=== PATIENT | female | born 1960 | race Hispanic/Latino ===

== ENCOUNTER 2018-09-28 15:19 | Observation (INO) | payer MEDICARE ==
[~2018-09-28] VITALS: Ht 163.8 cm; Wt 102.5 kg
[2018-09-28 16:23] LABS: BASOPHILS % (AUTO) 0.4 % (0.0-5.0); EOSINOPHILS % (AUTO) 2.6 % (0.0-8.0); HEMATOCRIT 35.1 % (36-48); LYMPHOCYTES % (AUTO) 13.2 % (21.0-51.0); MEAN CORPUSCULAR HEMOGLOBIN 33.1 pg (27.0-33.0); MEAN CORPUSCULAR HGB CONC 34.8 g/dL (32.0-36.0); MONOCYTES % (AUTO) 6.6 % (3.0-13.0); NEUTROPHILS % (AUTO) 77.2 % (40.0-77.0); NUCLEATED RED BLOOD CELLS 0.1 % (0.0-0.19); PLATELET COUNT (AUTO) 142 K/uL (130-400); RED BLOOD CELL COUNT(AUTO) 3.69 MIL/uL (4.00-5.50); WHITE BLOOD COUNT (AUTO) 5.9 K/uL (4.8-10.8)
[2018-09-28 16:34] LABS: POTASSIUM 3.3 mmol/L (3.5-5.1)
[2018-09-28 16:37] LABS: INR 0.97 (0.85-1.15); PARTIAL THROMBOPLASTIN TIME 30.6 SEC (26.3-35.5); PROTHROMBIN TIME 10.2 SEC (9.6-11.6)
[2018-09-28 16:38] LABS: ALBUMIN 3.5 g/dL (3.5-5.0); BILIRUBIN,TOTAL 0.6 mg/dL (0.2-1.0); TOTAL PROTEIN, SERUM 7.9 g/dL (6.0-8.3)
[2018-09-28] MEDS ORDERED: MORPHINE SULFATE 4 MG/1ML SYG IV PRN (20:15)
[2018-09-28] MEDS: NITROGLYCERIN 1GM/1 INCH PACKET TD SCH (20:15)
[2018-09-28] MEDS ORDERED: ACETAMINOPHEN 325 MG TAB PO PRN (20:15)
[2018-09-28] MEDS ORDERED: NITROGLYCERIN 1GM/1 INCH PACKET TD ONE (20:24)
[2018-09-28] MEDS ORDERED: METOPROLOL TARTRATE 25 MG TAB ONE (20:25)
[2018-09-28] MEDS ORDERED: FAMOTIDINE/PF 20 MG/2 ML VIAL IV ONE (20:25)
[2018-09-28] MEDS: METOPROLOL TARTRATE 25 MG TAB PO SCH (21:00)
[2018-09-28 22:19] VITALS: BP 150/73
[2018-09-28] MEDS: ACETAMINOPHEN 325 MG TAB PO PRN ×3 (22:48→23:54)
[2018-09-28 23:56] VITALS: BP 124/77
[2018-09-29 03:52] VITALS: BP 150/73
[2018-09-29] MEDS ORDERED: ONDANSETRON HCL 4 MG/2 ML VIAL ONE (04:36)
[2018-09-29] MEDS: NITROGLYCERIN 1GM/1 INCH PACKET TD SCH (04:39)
[2018-09-29] MEDS ORDERED: ONDANSETRON HCL 4 MG/2 ML VIAL IVP PRN (04:45)
[2018-09-29 07:00] VITALS: BP 134/73
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
[2018-09-29] MEDS ORDERED: FAMOTIDINE/PF 20 MG/2 ML VIAL IV SCH (09:00)
[2018-09-29] MEDS ORDERED: ASPIRIN 325 MG TABLET PO SCH (09:00)
[2018-09-29] MEDS: METOPROLOL TARTRATE 25 MG TAB PO SCH (09:09)
[2018-09-29] MEDS: FAMOTIDINE 20MG TAB 20 MG TAB PO SCH (09:14)
--- NOTE | 2018-09-29 09:22 | NUR ---
CARDIOLOGY CONSULT DR PEREZ IN TO SEE PT. SON @ BEDSIDE. UPDATED ON PT'S STATUS & PLAN OF CARE REVIEWED. ORDERS RECEIVED & ENTERED.
[2018-09-29] MEDS ORDERED: INSU100V IV (09:43)
[2018-09-29] MEDS ORDERED: HYDR-4030 PO (10:30)
[2018-09-29] MEDS ORDERED: ASPI-1181 PO (10:30)
[2018-09-29] MEDS ORDERED: SEVE800 PO (10:30)
[2018-09-29] MEDS ORDERED: BUPR200T34 PO (10:30)
[2018-09-29] MEDS ORDERED: IRON GLYCINATE PO (10:30)
[2018-09-29] MEDS ORDERED: EZET10TA26 PO (10:30)
[2018-09-29] MEDS ORDERED: CINA30 PO (10:30)
[2018-09-29] MEDS ORDERED: OMEGA-3 FISH OIL (10:30)
[2018-09-29] MEDS ORDERED: ISOS30TA6 PO (10:30)
[2018-09-29] MEDS ORDERED: CARV25TA PO (10:30)
[2018-09-29] MEDS ORDERED: B,C/1TAB PO (10:30)
[2018-09-29] MEDS ORDERED: LEVO150T11 PO (10:30)
[2018-09-29] MEDS ORDERED: FLUO40CA49 PO (10:30)
[2018-09-29] MEDS ORDERED: CHOL100018 PO (10:30)
[2018-09-29] MEDS ORDERED: INSU300I SQ ×2 (10:47)
[2018-09-29 11:00] VITALS: BP 157/73
[2018-09-29] MEDS ORDERED: GLUCAGON 1MG KIT 1 MG ML IM PRN (11:45)
[2018-09-29] MEDS ORDERED: DEXTROSE 50%-WATER 50 ML DISP.SYRIN IV PRN (11:45)
--- NOTE | 2018-09-29 12:05 | NUR ---
PPM INTERROGATION [facility] REP HERE TO INTERROGATE DEVICE. INFORMED TO CALL DR CHRIS Hunter/INTERROGATION RESULTS.
--- NOTE | 2018-09-29 12:24 | NUR ---
PPM INTERROGATION [facility] REP SPOKE W/DR PEREZ RE: DEVICE INTERROGATION.
[2018-09-29] MEDS ORDERED: NITROGLYCERIN 1GM/1 INCH PACKET TD SCH (14:00)
[2018-09-29 16:00] VITALS: BP 166/76
[2018-09-29] MEDS: INSULIN HUMULIN R 100 UNIT/ML 3ML SQ SCH ×2 (16:28→21:00)
[2018-09-29] MEDS: INSULIN LISPRO 100 UNIT/ML 3ML SQ SCH (17:00)
[2018-09-29] MEDS: CINACALCET HCL 30 MG TAB PO SCH (17:15)
[2018-09-29] MEDS: SEVELAMER HCL 800 MG TABLET PO SCH (17:15)
[2018-09-29 19:51] VITALS: BP 168/92
[2018-09-29] MEDS ORDERED: INSULIN GLARGINE HUM REC ANLOG 50 UNIT SQ SCH (21:00)
[2018-09-29] MEDS ORDERED: FLUOXETINE HCL 20 MG CAPSULE PO SCH (21:00)
[2018-09-29] MEDS: CARVEDILOL 25 MG TABLET PO SCH (21:02)
[2018-09-29] MEDS: BUPROPION HCL 200 MG PO SCH (21:08)
[2018-09-29] MEDS: HYDROXYZINE PAMOATE 25 MG PO SCH (21:08)
[2018-09-29 23:39] VITALS: BP 137/69
[2018-09-30 03:52] VITALS: BP 130/65
[2018-09-30 04:09] LABS: HEMATOCRIT 32.8 % (36-48); MEAN CORPUSCULAR HEMOGLOBIN 32.8 pg (27.0-33.0); MEAN CORPUSCULAR HGB CONC 34.3 g/dL (32.0-36.0); MEAN CORPUSCULAR VOLUME 95.8 fL (79-99); NUCLEATED RED BLOOD CELLS 0.1 % (0.0-0.19); PLATELET COUNT (AUTO) 177 K/uL (130-400); RED BLOOD CELL COUNT(AUTO) 3.42 MIL/uL (4.00-5.50); WHITE BLOOD COUNT (AUTO) 6.4 K/uL (4.8-10.8)
[2018-09-30 04:23] LABS: BASOPHILS % (MANUAL) 1 % (0-2); EOSINOPHILS % (MANUAL) 1 % (1-6); LYMPHOCYTES % (MANUAL) 15 % (22-44); MAN.DIFF COMMENT-IMPRESSION MANUAL DIFFERENTIAL; POTASSIUM 4.1 mmol/L (3.5-5.1); SEGMENTED NEUTROPHILS % 83 % (40-70)
[2018-09-30] MEDS: INSULIN HUMULIN R 100 UNIT/ML 3ML SQ SCH ×3 (06:04→16:29)
[2018-09-30] MEDS ORDERED: LEVOTHYROXINE 150 MCG TABLET PO SCH (06:30)
[2018-09-30 07:00] VITALS: BP 124/54
[2018-09-30] MEDS: INSULIN LISPRO 100 UNIT/ML 3ML SQ SCH ×3 (08:00→16:31)
--- NOTE | 2018-09-30 08:30 | NUR ---
AM ASSESSMENT PT SITTING IN BED. A/O X 3. NO SOB. NO DISTRESS NOTED. DENIES CHEST PAIN OR DISCOMFORT. DENIES PALPITATIONS. TELE: PACED 60s. LT ARM PRECAUTIONS IN PLACE. MADI Hunter FLianne KIM AV GRAFT (+) BRUIT/(+) THRILL. (+) NAUSEA; AWARE. DECLINES ZOFRAN. (+) DIARRHEA. UP W/ASSISTANCE. INSTRUCTED TO CALL FOR ASSISTANCE. CALL ALLEN W/IN REACH.
[2018-09-30] MEDS: FAMOTIDINE 20MG TAB 20 MG TAB PO SCH (08:49)
[2018-09-30] MEDS: SEVELAMER HCL 800 MG TABLET PO SCH ×3 (08:49→16:52)
[2018-09-30] MEDS: CARVEDILOL 25 MG TABLET PO SCH (08:50)
[2018-09-30] MEDS: HYDROXYZINE PAMOATE 25 MG PO SCH ×2 (08:53→14:16)
[2018-09-30] MEDS: BUPROPION HCL 200 MG PO SCH (08:53)
[2018-09-30] MEDS ORDERED: D3 PO SCH (09:00)
[2018-09-30] MEDS ORDERED: SELENOMETH PO SCH (09:00)
[2018-09-30] MEDS ORDERED: FISH OIL 1000 MG/CAP PO SCH (09:00)
[2018-09-30] MEDS ORDERED: EZETIMIBE 10 MG TAB PO SCH (09:00)
[2018-09-30] MEDS ORDERED: INSULIN GLARGINE HUM REC ANLOG 50 UNIT SQ SCH (09:00)
[2018-09-30] MEDS ORDERED: [UNRECOGNIZED DRUG - OTHER] PO SCH (09:00)
[2018-09-30] MEDS ORDERED: ISOSORBIDE MONO 30MG TAB SR PO SCH (09:00)
[2018-09-30] MEDS ORDERED: FOLIC PO SCH (09:00)
[2018-09-30] MEDS ORDERED: ASPIRIN 81 MG EC TAB PO SCH (09:00)
[2018-09-30] MEDS ORDERED: **HM**Cholecalciferol (Vitamin D3) (Vitamin D3) 1,000 UNIT PO SCH (09:00)
[2018-09-30] MEDS ORDERED: ZINC PO SCH (09:00)
[2018-09-30] MEDS ORDERED: IRON GLYCINATE 28 MG PO SCH (09:00)
--- NOTE | 2018-09-30 09:34 | NUR ---
cm note met with patient and states resides athome with son, and daughter in law, pt ambulates with walker, has a rollator and standard walker, has cpap for night, and a shower chair. pt does own personal care, and family asists. provided pt with requested provider services sayda Tam. states she will followup with them at [place] states no other dc needs. Addendum: 09/30/18 at 0935 by NATHALY MOYA CM Amended: Links added.
[2018-09-30 11:00] VITALS: BP 115/56
--- NOTE | 2018-09-30 11:20 | NUR ---
MD VISIT DR PEREZ IN TO SEE PT. 2D ECHO RESULTS REVIEWED W/PT BY . COPY OF 2D ECHO RESULTS GIVEN TO PT BY MD; RESULTS TO BE GIVEN TO PT'S SON BY PT.
[2018-09-30 16:00] VITALS: BP 125/75
[2018-09-30] MEDS: CINACALCET HCL 30 MG TAB PO SCH (16:52)
[2018-09-30 19:24] VITALS: BP 130/74
--- NOTE | 2018-09-30 20:54 | NUR ---
Discharger instruction given to pt. IV catheter removed ,tip is intact and dressing applied.Pt. denies chestpain or any discomfort.Son and staff wheeled pt. off outside.Pt. discharged in stable condition.
== END 2018-09-30 20:55 | disposition home or self-care (01) ==
LOC: EDH 15:19 → OBSVTOIN 18:50 → EDHIP 18:50 → INTOOBSV 18:50 → EDHIP 19:22 → UNDOADMOB 19:22 → 2AH 22:07
PROVIDERS: ADMIT Internal Medicine; ATTEND Internal Medicine
DX: R20.0 Anesthesia of skin (principal); R07.89 Other chest pain; R00.2 Palpitations; R19.7 Diarrhea, unspecified; E03.9 Hypothyroidism, unspecified; I12.0 Hypertensive chronic kidney disease with stage 5 chronic kidney disease or end stage renal disease; N18.6 End stage renal disease; E11.21 Type 2 diabetes mellitus with diabetic nephropathy; E11.22 Type 2 diabetes mellitus with diabetic chronic kidney disease; E78.5 Hyperlipidemia, unspecified; G47.30 Sleep apnea, unspecified; I25.10 Atherosclerotic heart disease of native coronary artery without angina pectoris; I34.0 Nonrheumatic mitral (valve) insufficiency; I42.0 Dilated cardiomyopathy; Z79.4 Long term (current) use of insulin; Z90.710 Acquired absence of both cervix and uterus; Z99.2 Dependence on renal dialysis; Z88.1 Allergy status to other antibiotic agents; Z88.8 Allergy status to other drugs, medicaments and biological substances
CPT/HCPCS: 36415 ×2; 71045; 80048; 80053; 82550; 82948 ×7; 83690; 83880; 84484 ×2; 85025 ×2; 85610; 85730; 93005; 93306; 96374; 99284; A4600; G0378 ×50; J2405 ×2; J3490

== ENCOUNTER 2018-11-01 16:15 | Inpatient (IN) | payer MEDICARE ==
[~2018-11-01] VITALS: Ht 160 cm; Wt 100.7 kg
[~2018-11-01 16:15] MED LIST: ASPI-1181 PO; B,C/1TAB PO; BUPR200T34 PO; CARV25TA PO; CHOL100018 PO; CINA30 PO; EZET10TA26 PO; FLUO40CA49 PO; HYDR-4030 PO; INSU100V IV; INSU300I SQ; IRON GLYCINATE PO; ISOS30TA6 PO; LEVO150T11 PO; OMEGA-3 FISH OIL; SEVE800 PO
[2018-11-01 16:49] LABS: BASOPHILS % (AUTO) 0.6 % (0.0-5.0); HEMATOCRIT 36.8 % (36-48); LYMPHOCYTES % (AUTO) 23.5 % (21.0-51.0); MEAN CORPUSCULAR HEMOGLOBIN 32.5 pg (27.0-33.0); MEAN CORPUSCULAR HGB CONC 33.7 g/dL (32.0-36.0); MEAN CORPUSCULAR VOLUME 96.2 fL (79-99); MONOCYTES % (AUTO) 5.2 % (3.0-13.0); NEUTROPHILS % (AUTO) 65.7 % (40.0-77.0); PLATELET COUNT (AUTO) 134 K/uL (130-400); RED BLOOD CELL COUNT(AUTO) 3.83 MIL/uL (4.00-5.50); RED CELL DISTRIBUTION WIDTH 14.6 % (11.0-15.5); WHITE BLOOD COUNT (AUTO) 5.4 K/uL (4.8-10.8)
[2018-11-01 17:06] LABS: CARBON DIOXIDE 31 mmol/L (21-32); CHLORIDE 101 mmol/L (101-111); CREATININE 5.1 mg/dL (0.5-1.5); GLOMERULAR FILTR. RATE CALC 9 mL/min (>60); GLUCOSE,RANDOM 157 mg/dL (70-105); SODIUM SERUM 142 mmol/L (136-145); UREA NITROGEN, BLOOD 25 mg/dL (7-18)
[2018-11-01 17:08] LABS: ALANINE AMINOTRANSFERASE 22 U/L (12-78); ALBUMIN 3.5 g/dL (3.5-5.0); ALCOHOL, BLOOD < 3 mg/dL (0-10); ASPARTATE AMINOTRANSFERASE 13 U/L (10-37); BILIRUBIN,TOTAL 0.5 mg/dL (0.2-1.0); TOTAL PROTEIN, SERUM 7.9 g/dL (6.0-8.3)
[2018-11-01 17:15] LABS: ACETAMINOPHEN < 1 mcg/mL (10-30); SALICYLATE < 2.8 mg/dL (2.8-20.0)
[2018-11-01] MEDS ORDERED: ONDANSETRON HCL 4 MG/2 ML VIAL IV PRN (23:30)
[2018-11-01] MEDS ORDERED: DEXTROSE 50%-WATER 50 ML DISP.SYRIN IV PRN (23:30)
[2018-11-01] MEDS ORDERED: NITROGLYCERIN 0.4 MG SL TAB SL PRN (23:30)
[2018-11-01] MEDS ORDERED: HYDRALAZINE HCL 20 MG/ML VIAL IV PRN (23:30)
[2018-11-01] MEDS ORDERED: ACETAMINOPHEN 325 MG TAB PO PRN ×2 (23:30)
[2018-11-01] MEDS ORDERED: GLUCAGON 1MG KIT 1 MG ML IM PRN (23:30)
[2018-11-01 23:45] LABS: MAGNESIUM 2.1 mg/dL (1.80-2.40); PHOSPHORUS 5.2 mg/dL (2.5-4.9)
[2018-11-02] VITALS (7 sets, daily range): BP systolic 127–188; BP diastolic 60–79
[2018-11-02 00:08] LABS: HEMOGLOBIN A1C 8.9 % (4.0-6.0)
[2018-11-02 00:46] LABS: AMPHET/METH SCREEN,URINE NEGATIVE (NEGATIVE); BARBITURATE SCREEN, URINE NEGATIVE (NEGATIVE); BENZODIAZEPINES SCREEN,URINE NEGATIVE (NEGATIVE); CANNABINOID SCREEN,URINE NEGATIVE (NEGATIVE); COCAINE SCREEN,URINE NEGATIVE (NEGATIVE); OPIATE SCREEN,URINE NEGATIVE (NEGATIVE); PHENCYCLIDINE SCREEN,URINE NEGATIVE (NEGATIVE)
--- NOTE | 2018-11-02 03:02 | NUR ---
ADMISSION. PT TRANSFERRED VIA WHEEL CHAIR FROM ER INTO ROOM 419. PT AWAKE, ALERT AND RESPONSIVE. NOT VOICING SUICIDAL IDEATION AT THIS TIME, 1:1 SITTER WITH PT. WILL CONTINUE TO MONITOR PT. Addendum: 11/02/18 at 0318 by TATY BARFIELD RN Amended: Links added.
[2018-11-02 06:04] LABS: BASOPHILS % (AUTO) 0.8 % (0.0-5.0); EOSINOPHILS % (AUTO) 5.5 % (0.0-8.0); HEMATOCRIT 35.5 % (36-48); LYMPHOCYTES % (AUTO) 27.7 % (21.0-51.0); MEAN CORPUSCULAR HEMOGLOBIN 32.3 pg (27.0-33.0); MEAN CORPUSCULAR HGB CONC 33.7 g/dL (32.0-36.0); MEAN CORPUSCULAR VOLUME 95.6 fL (79-99); MONOCYTES % (AUTO) 7.4 % (3.0-13.0); NEUTROPHILS % (AUTO) 58.6 % (40.0-77.0); PLATELET COUNT (AUTO) 140 K/uL (130-400); RED BLOOD CELL COUNT(AUTO) 3.71 MIL/uL (4.00-5.50); RED CELL DISTRIBUTION WIDTH 14.7 % (11.0-15.5); WHITE BLOOD COUNT (AUTO) 5.8 K/uL (4.8-10.8)
[2018-11-02 06:17] LABS: ALBUMIN 3.1 g/dL (3.5-5.0); BILIRUBIN,TOTAL 0.5 mg/dL (0.2-1.0); CREATININE 5.8 mg/dL (0.5-1.5); MAGNESIUM 2.2 mg/dL (1.80-2.40); PHOSPHORUS 5.3 mg/dL (2.5-4.9); POTASSIUM 3.5 mmol/L (3.5-5.1); TOTAL PROTEIN, SERUM 7.1 g/dL (6.0-8.3)
[2018-11-02] MEDS: INSULIN HUMULIN R 100 UNIT/ML 3ML SQ SCH ×4 (06:32→21:45)
[2018-11-02] MEDS: FAMOTIDINE 20MG TAB 20 MG TAB PO SCH (10:30)
[2018-11-02] MEDS: ENOXAPARIN SODIUM 30 MG/0.3 ML SQ SCH (10:33)
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
[2018-11-02] MEDS ORDERED: ACETAMINOPHEN 325 MG TAB PO PRN (14:45)
[2018-11-02] MEDS ORDERED: SODIUM CHLORIDE 0.9% 1000ML 1,000 ML IV PRN (14:45)
[2018-11-02] MEDS ORDERED: NITROGLYCERIN 0.4 MG SL TAB SL PRN (14:45)
[2018-11-02] MEDS ORDERED: HEPARIN SODIUM 5000UNIT/ML 1ML VIAL IJ PRN (14:45)
[2018-11-02] MEDS ORDERED: 0.9% SODIUM CHLORIDE 1000 ML IV BAG IV PRN (14:45)
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
[2018-11-02] MEDS: FLUOXETINE HCL 20 MG CAPSULE PO SCH (21:50)
[2018-11-02] MEDS: CARVEDILOL 25 MG TABLET PO SCH (21:50)
[2018-11-02] MEDS: HYDROXYZINE HCL 25 MG TABLET PO SCH (21:50)
[2018-11-02] MEDS: FOLIC ACID/VITAMIN B COMP W-C 1 MG CAPSULE PO SCH (21:52)
[2018-11-03 04:27] VITALS: BP 140/63
[2018-11-03 04:40] LABS: HEMATOCRIT 33.5 % (36-48); MEAN CORPUSCULAR HEMOGLOBIN 33.1 pg (27.0-33.0); MEAN CORPUSCULAR HGB CONC 34.4 g/dL (32.0-36.0); MEAN CORPUSCULAR VOLUME 96.2 fL (79-99); NUCLEATED RED BLOOD CELLS 0.1 % (0.0-0.19); PLATELET COUNT (AUTO) 87 K/uL (130-400); RED BLOOD CELL COUNT(AUTO) 3.48 MIL/uL (4.00-5.50); RED CELL DISTRIBUTION WIDTH 14.6 % (11.0-15.5); WHITE BLOOD COUNT (AUTO) 5.3 K/uL (4.8-10.8)
[2018-11-03 05:02] LABS: CREATININE 4.7 mg/dL (0.5-1.5); MAGNESIUM 2.2 mg/dL (1.80-2.40); PHOSPHORUS 4.4 mg/dL (2.5-4.9); POTASSIUM 3.6 mmol/L (3.5-5.1)
[2018-11-03] MEDS: INSULIN HUMULIN R 100 UNIT/ML 3ML SQ SCH ×4 (05:43→20:55)
[2018-11-03] MEDS: LEVOTHYROXINE 150 MCG TABLET PO SCH (05:52)
[2018-11-03 08:00] VITALS: BP 127/63
--- NOTE | 2018-11-03 08:00 | NUR ---
am shift assessment. 1:1 sitter in room for suicidal ideation.
--- NOTE | 2018-11-03 08:00 | NUR ---
will hold arisnox this am due to plt. count. Addendum: 11/03/18 at 1110 by LEXY MAHMOOD RN RN Amended: Links added.
[2018-11-03] MEDS: ENOXAPARIN SODIUM 30 MG/0.3 ML SQ SCH (09:00)
[2018-11-03] MEDS: RENAPLEX D PO SCH (09:00)
[2018-11-03] MEDS: Cholecalciferol (Vitamin D3) (Vitamin D3) 1,000 UNIT PO SCH (09:00)
[2018-11-03] MEDS ORDERED: EZETIMIBE 10 MG TAB PO SCH (09:00)
[2018-11-03] MEDS: BUPROPION HCL 200 MG PO SCH ×2 (09:00→20:54)
[2018-11-03] MEDS: ASPIRIN 81MG TAB.CHEW PO SCH (09:05)
[2018-11-03] MEDS: FOLIC ACID/VITAMIN B COMP W-C 1 MG CAPSULE PO SCH (09:05)
[2018-11-03] MEDS: SEVELAMER HCL 800 MG TABLET PO SCH ×3 (09:05→16:22)
[2018-11-03] MEDS: FISH OIL 1000 MG/CAP PO SCH (09:06)
[2018-11-03] MEDS: ISOSORBIDE MONO 30MG TAB SR PO SCH (09:06)
[2018-11-03] MEDS: FAMOTIDINE 20MG TAB 20 MG TAB PO SCH (09:08)
[2018-11-03] MEDS: CARVEDILOL 25 MG TABLET PO SCH ×2 (09:43→20:50)
[2018-11-03] MEDS: HYDROXYZINE HCL 25 MG TABLET PO SCH ×3 (09:43→20:47)
--- NOTE | 2018-11-03 10:00 | NUR ---
has been quiet and co-operative so far. took meds well. pending to be seen by dr hackett.
[2018-11-03 12:00] VITALS: BP 132/60
--- NOTE | 2018-11-03 14:40 | NUR ---
DR. OREILLY IN TO SEE PT. LABS ORDERED FOR AM'
[2018-11-03 16:00] VITALS: BP 145/64
[2018-11-03] MEDS: CINACALCET HCL 30 MG TAB PO SCH (16:22)
[2018-11-03 20:00] VITALS: BP 129/60
[2018-11-03] MEDS: FLUOXETINE HCL 20 MG CAPSULE PO SCH (20:50)
[2018-11-04] VITALS: BP 140/64
[2018-11-04 04:00] VITALS: BP 147/67
[2018-11-04 05:16] LABS: HEMATOCRIT 31.9 % (36-48); MEAN CORPUSCULAR HEMOGLOBIN 32.6 pg (27.0-33.0); MEAN CORPUSCULAR HGB CONC 34.1 g/dL (32.0-36.0); MEAN CORPUSCULAR VOLUME 95.7 fL (79-99); PLATELET COUNT (AUTO) 112 K/uL (130-400); RED BLOOD CELL COUNT(AUTO) 3.33 MIL/uL (4.00-5.50); RED CELL DISTRIBUTION WIDTH 14.8 % (11.0-15.5); WHITE BLOOD COUNT (AUTO) 5.2 K/uL (4.8-10.8)
[2018-11-04 05:20] LABS: CREATININE 7.1 mg/dL (0.5-1.5); POTASSIUM 4.2 mmol/L (3.5-5.1)
[2018-11-04 05:24] LABS: EOSINOPHILS % (MANUAL) 6 % (1-6); LYMPHOCYTES % (MANUAL) 36 % (22-44); MAN.DIFF COMMENT-IMPRESSION MANUAL DIFFERENTIAL; MONOCYTES % (MANUAL) 8 % (2-9); PLATELET MORPHOLOGY COMMENT SLIGHTLY DECREASED; SEGMENTED NEUTROPHILS % 50 % (40-70)
[2018-11-04] MEDS: INSULIN HUMULIN R 100 UNIT/ML 3ML SQ SCH ×3 (06:15→16:27)
[2018-11-04] MEDS: LEVOTHYROXINE 150 MCG TABLET PO SCH (06:16)
[2018-11-04 08:00] VITALS: BP 139/60
[2018-11-04] MEDS: FOLIC ACID/VITAMIN B COMP W-C 1 MG CAPSULE PO SCH (08:16)
[2018-11-04] MEDS: ASPIRIN 81MG TAB.CHEW PO SCH (08:16)
[2018-11-04] MEDS: ISOSORBIDE MONO 30MG TAB SR PO SCH (08:16)
[2018-11-04] MEDS: HYDROXYZINE HCL 25 MG TABLET PO SCH ×2 (08:16→14:10)
[2018-11-04] MEDS: FISH OIL 1000 MG/CAP PO SCH (08:16)
[2018-11-04] MEDS: FAMOTIDINE 20MG TAB 20 MG TAB PO SCH (08:16)
[2018-11-04] MEDS: SEVELAMER HCL 800 MG TABLET PO SCH ×2 (08:16→16:24)
[2018-11-04] MEDS: ENOXAPARIN SODIUM 30 MG/0.3 ML SQ SCH (08:19)
[2018-11-04] MEDS: RENAPLEX D PO SCH (08:25)
[2018-11-04] MEDS: BUPROPION HCL 200 MG PO SCH (08:25)
[2018-11-04] MEDS: Cholecalciferol (Vitamin D3) (Vitamin D3) 1,000 UNIT PO SCH (08:25)
[2018-11-04] MEDS: CARVEDILOL 25 MG TABLET PO SCH (08:27)
[2018-11-04 12:00] VITALS: BP 120/61
--- NOTE | 2018-11-04 13:31 | NUR ---
DR. DASILVA IN TO SEE PT. NOW.
[2018-11-04 16:00] VITALS: BP 132/66
[2018-11-04] MEDS: CINACALCET HCL 30 MG TAB PO SCH (16:24)
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
== END 2018-11-04 17:00 | disposition home or self-care (01) | DRG 880 ==
LOC: EDH 16:15 → EEVIPCON 23:32 → OBSVTOIN 23:32 → EDHIP 23:32 → 4CH 11-02 02:16
PROVIDERS: ADMIT Internal Medicine; ATTEND Internal Medicine
PROC: 5A1D70Z Performance of Urinary Filtration, Intermittent, Less than 6 Hours Per Day (ICD-10-PCS; principal; 2018-11-02)
DX: R45.851 Suicidal ideations (principal); N18.6 End stage renal disease; I12.0 Hypertensive chronic kidney disease with stage 5 chronic kidney disease or end stage renal disease; I42.0 Dilated cardiomyopathy; E11.65 Type 2 diabetes mellitus with hyperglycemia; E11.22 Type 2 diabetes mellitus with diabetic chronic kidney disease; D64.9 Anemia, unspecified; D69.6 Thrombocytopenia, unspecified; E66.9 Obesity, unspecified; E78.5 Hyperlipidemia, unspecified; E86.0 Dehydration; F17.210 Nicotine dependence, cigarettes, uncomplicated; F32.9 Major depressive disorder, single episode, unspecified; F43.22 Adjustment disorder with anxiety; F60.7 Dependent personality disorder; I25.10 Atherosclerotic heart disease of native coronary artery without angina pectoris; K29.70 Gastritis, unspecified, without bleeding; M81.0 Age-related osteoporosis without current pathological fracture; X99.1XXA Assault by knife, initial encounter; Z68.39 Body mass index [BMI] 39.0-39.9, adult; Z99.2 Dependence on renal dialysis; Z63.9 Problem related to primary support group, unspecified; Z79.899 Other long term (current) drug therapy; Z90.710 Acquired absence of both cervix and uterus; Z91.19 Patient's noncompliance with other medical treatment and regimen; Z95.0 Presence of cardiac pacemaker; Z88.8 Allergy status to other drugs, medicaments and biological substances; Z83.3 Family history of diabetes mellitus
CPT/HCPCS: 36415; 80048; 80053; 80305; 82948; 83036; 83735; 84100; 85025; 85027; 90935; 93005; G0378; G0480; G0481; J0360; J1650; J1815